=== PATIENT | male | born 1960 | race Caucasian/White ===

== ENCOUNTER 2018-03-10 19:44 | Emergency (ER) | payer OTHER ==
[~2018-03-10] VITALS: Ht 172.7 cm; Wt 97.1 kg
[2018-03-10 19:49] VITALS: Ht 172.7 cm; Wt 97.1 kg
[2018-03-10 20:35] LABS: CALCIUM 9.3 mg/dL (8.5-10.1); CARBON DIOXIDE 24.4 mmol/L (21-32); CHLORIDE SERUM 107 mmol/L (98-107); CREATININE SERUM 1.5 mg/dL (0.7-1.3); GFR1 51 mL/min; GLUCOSE SERUM 224 mg/dL (74-106); POTASSIUM SERUM 4.1 mmol/L (3.5-5.1); SODIUM SERUM 142 mmol/L (136-145)
[2018-03-10 20:40] LABS: ALBUMIN 3.5 g/dL (3.4-5.0); ALKALINE PHOSPHATASE 88 U/L (46-116); ALT/SGPT 26 U/L (16-63); AST/SGOT 19 U/L (15-37); LIPASE 355 IU/L (73-393); TOTAL PROTEIN, SERUM 7.5 g/dL (6.4-8.2)
[2018-03-10 23:18] LABS: BASOPHIL % 0.5 % (0-2)
[2018-03-10 23:20] LABS: PLATELET COUNT 92 x10^3mcL (130-400); RED CELL DISTRIBUTION WIDTH 19.5 % (11.5-14.5)
[2018-03-11 00:14] LABS: AMPHETAMINE QUAL UR NONE DETECTED (See below)
[2018-03-11 00:51] VITALS: BP 134/81
== END 2018-03-11 00:51 | disposition home or self-care (01) ==
LOC: EDBD 19:44 → ED 19:44
PROVIDERS: Emergency Medicine
DX: R07.89 Other chest pain (principal); M79.1 Myalgia; R06.02 Shortness of breath; R53.1 Weakness; I10 Essential (primary) hypertension; E11.9 Type 2 diabetes mellitus without complications; Z88.5 Allergy status to narcotic agent; Z88.8 Allergy status to other drugs, medicaments and biological substances
CPT/HCPCS: G0480; J2270; J2405; J7030